=== PATIENT | female | born 2000 | race African-American/Black ===

== ENCOUNTER 2022-04-07 15:40 | Outpatient (CLI) | payer OTHER, SELFPAY ==
[2022-04-07 19:06] LABS: Chlamydia DNA Amplified* NOT DETECTED (No Detected); GC DNA Amplified* NOT DETECTED (No Detected)
== END 2022-04-07 15:41 | disposition home or self-care (01) ==
LOC: NFLDREF 15:43
PROVIDERS: Visit Provider Obstetrics & Gynecology
DX: Z11.3 Encounter for screening for infections with a predominantly sexual mode of transmission (principal)
CPT/HCPCS: 87491; 87591